=== PATIENT | female | born 1980 | race African-American/Black ===

== ENCOUNTER → 2016-12-26 | Outpatient (CLI) | payer OTHER ==
[~2016-12-26] MED LIST: DEPO400I IM; DOXY100C PO; IBUP800T23 PO; METR-1 PO
--- NOTE | 2016-12-26 10:42 | RADRPT ---
EXAM DATE/TIME: 12/26/2016 09:40 [place] COMPARISON: No previous studies available for comparison. INDICATIONS : Vaginal bleeding. MEDICAL HISTORY : Vaginal bleeding. SURGICAL HISTORY : Right hand tendon repair. Left knee arthroscopy. ENCOUNTER: Initial ACUITY: 1 day PAIN SCORE: 2/10 LOCATION: Bilateral pelvis MEASUREMENTS: UTERUS: 7.9 x 5.5 x 6.3 cm ENDOMETRIAL STRIPE: 6 mm RIGHT OVARY: 3.9 x 1.6 x 3.1 cm LEFT OVARY: 3.5 x 2.0 x 2.9 cm FINDINGS: Intrauterine device is present extending to the left side. 2 small nabothian cysts present in the cer vical region measuring up to 11 mm and 7 mm in diameter. Complex 1.9 cm right ovarian cyst. Left ovar y unremarkable. No other adnexal mass. No free fluid. CONCLUSION: 1. Intrauterine device present. No evidence for intrauterine . Nabothian cysts in the cervix . Complex right ovarian cyst. No adnexal mass or free fluid. Clement Ren MD on December 26, 2016 at 10:33 Board Certified Radiologist. This report was verified electronically.
== END ==
LOC: HRAD 09:24
PROVIDERS: ATTEND Obstetrics & Gynecology Gynecologic Oncology
DX: N92.0 Excessive and frequent menstruation with regular cycle (principal)
CPT/HCPCS: 76830; 76856

== ENCOUNTER 2017-07-28 12:47 | Emergency (ER) | payer OTHER ==
[~2017-07-28] VITALS: Ht 162.6 cm; Wt 75.0 kg
[2017-07-28 12:51] VITALS: BP 113/59; PULSE 79; RESP 20; TEMP 98.4; O2SAT 100
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
[2017-07-28] MEDS ORDERED: IBUP800T23 PO (13:12)
[2017-07-28] MEDS ORDERED: ROBA500T PO (13:12)
[2017-07-28] MEDS ORDERED: KETOROLAC TROMETHAMINE 60 MG/2 ML (IM) VIAL IM ONE ×2 (13:15→13:32)
[2017-07-28] MEDS ORDERED: ORPHENADRINE INJ 60 MG/2 ML AMP IM ONE (13:15)
[2017-07-28] MEDS ORDERED: ORPHENADRINE INJ 60 MG/2 ML AMP ONE (13:32)
== END 2017-07-28 14:06 | disposition home or self-care (01) ==
LOC: NEPK 12:47
DX: S16.1XXA Strain of muscle, fascia and tendon at neck level, initial encounter (principal); S29.012A Strain of muscle and tendon of back wall of thorax, initial encounter; R51 Headache; V43.52XA Car driver injured in collision with other type car in traffic accident, initial encounter
CPT/HCPCS: 96372; 99284; J1885; J2360